=== PATIENT | male | born 1950 | race Caucasian/White ===

== ENCOUNTER → 2017-10-07 08:21 | Outpatient (CLI) | payer MEDICARE, OTHER, SELFPAY ==
[2017-10-07 09:29] LABS: PSA,Total- Diagnostic 0.03 ng/mL (0.0-4.0)
== END ==
PROVIDERS: Visit Provider Urology
DX: C61 Malignant neoplasm of prostate (principal)
CPT/HCPCS: 36415; 84153

== ENCOUNTER → 2018-04-07 08:31 | Outpatient (CLI) | payer MEDICARE, OTHER, SELFPAY ==
[2018-04-07 09:19] LABS: PSA,Total- Diagnostic 0.04 ng/mL (0.0-4.0)
== END ==
PROVIDERS: Referring Provider Urology; Visit Provider Urology
DX: C61 Malignant neoplasm of prostate (principal)
CPT/HCPCS: 36415; 84153

== ENCOUNTER → 2018-10-07 | Outpatient (CLI) | payer MEDICARE, OTHER, SELFPAY ==
[2017-02-17 13:32] VITALS: BMI 25.0
[2018-10-07 10:04] LABS: PSA,Total- Diagnostic 0.06 ng/mL (0.0-4.0)
== END | disposition home or self-care (01) ==
PROVIDERS: Referring Provider Urology; Visit Provider Urology
DX: R97.20 Elevated prostate specific antigen [PSA] (principal)
CPT/HCPCS: 36415; 84153

== ENCOUNTER 2019-02-08 12:21 | Observation (INO) | payer MEDICARE, OTHER, SELFPAY ==
[2019-02-08] VITALS (13 sets, daily range): BP systolic 123–156; BP diastolic 71–98; PULSE 55–76; RESP 11–18; TEMP 36.2–37; O2SAT 95–100; BMI 24.3; BMI 24.4; BMI 25.4
--- NOTE | 2019-02-08 12:39 | RAD_ITS ---
STUDY: X-RAY CHEST REASON FOR EXAM: Male, 68 years old. Cough. Weakness. TECHNIQUE: Single AP portable view of the chest. COMPARISON: None. FINDINGS: Cardiac silhouette unremarkable. Pulmonary vascularity unremarkable. Aorta slightly ectatic. No focal patchy airspace opacities. No pleural effusions. Upper abdomen unremarkable. Osseous structures intact. No pneumothorax. RAD/Chest 1 View IMPRESSION: No acute cardiopulmonary findings Electronically Signed: Yair Sagastume DO at 13:21 EDT Tel , Service support ,
--- NOTE | 2019-02-08 12:39 | EKG12_ITS ---
Test Reason : WEAKNESS/DIZZINESS Blood Pressure : / mmHG Vent. Rate : 071 BPM Atrial Rate : 071 BPM P-R Int : 160 ms QRS Dur : 086 ms QT Int : 390 ms P-R-T Axes : 027 -06 028 degrees QTc Int : 423 ms Normal sinus rhythm Normal ECG Confirmed by MEGHANA DELANEY ([id number]), editorial intern HETAL IGLESIAS ([id number]) on 02/13/2019 2:08:32 PM Referred By: Zayda Cruz Confirmed By:MEGHANA DELANEY
--- NOTE | 2019-02-08 12:39 | CT_ITS ---
STUDY: CT BRAIN WITHOUT CONTRAST REASON FOR EXAM: Male, 68 years old. Right-sided weakness RADIATION DOSAGE (If Supplied By Facility): CTDIvol = ( 44.99 ) mGy, DLP = ( 779.24 ) mGycm TECHNIQUE: Transaxial CT imaging of the brain was performed without administration of intravenous contrast material. Individualized dose optimization techniques were used for this CT. COMPARISON: No relevant priors. FINDINGS: Normal soft tissue structures. Normal calvarium. There is mild cerebral atrophy with widening of the extra-axial spaces and ventricular dilatation. There are areas of decreased attenuation within the white matter tracts of the supratentorial brain, consistent with microvascular disease changes. Normal basal ganglia and thalami. Normal brainstem. There is mild cerebellar atrophy. There is no intracranial hemorrhage. There are no findings of an acute ischemic infarction. Normal visualized paranasal sinuses. CT/Brain/Head without Contrast IMPRESSION: Chronic involutional changes of the brain. No acute intracranial process. Electronically Signed: David Calhoun MD at 13:16 EDT Tel [phone], Service support ,
[2019-02-08 12:48] LABS: Absolute Lymphocyte Count 1.37 X10^3/uL (0.83-4.51); Absolute Neutrophil Count 3.9 X10^3/uL (2.0-7.7); Basophil# 0.03 X10^3/uL; Basophil% 0.5 % (0-1); Eosinophils% 1.7 % (0-5); Hematocrit 45.6 % (40-54); Hemoglobin 15.4 g/dL (13.0-16.5); Lymphocyte # 1.37 X10^3/ul (4.0); Lymphocyte % 23.2 % (19-41); Mean Corp Hgb Conc 33.8 g/dL (32-36); Mean Corpuscular Hgb 30.5 pg (27.0-32.0); Mean Corpuscular Volume 90.3 fL (80-94); Mean Platelet Vol. 9.2 fl (6.2-12.0); Monocyte# 0.49 X10^3/uL; Monocyte% 8.3 % (0-10); NRBC Flagged by Analyzer 0 % (0-5); Platelet Count 246 K/mm3 (150-450); RBC Distribution Width CV 12.9 % (11.6-14.6); RBC Distribution Width SD 42.3 fl (35.1-43.9); Red Blood Count 5.05 M/mm3 (4.6-6.2); White Blood Count 5.9 K/mm3 (4.4-11.0)
[2019-02-08 12:55] LABS: Prothrombin Time (Protime)PT. 12.8 SECONDS (11.7-14.9)
[2019-02-08 12:56] LABS: Partial Thromboplast Time 28.7 Seconds (24.1-36.2)
[2019-02-08 13:05] LABS: Bedside Glucose 95 mg/dL (70-110)
[2019-02-08 13:05] LABS: Anion Gap 7 (5-15); BUN 17 mg/dL (7-18); BUN/Creat Ratio 12.8 RATIO (10-20); Chloride 108 mmol/L (98-107); Creatinine, Serum 1.33 mg/dL (0.70-1.30); EST Glomerular Filtration Rate 56 mL/min (>60); Est Glom Filt Rate - Afr Amer 68 mL/min (>60); Estimated Creatinine Clearance 51.68 ml/min; Glucose 93 mg/dL (74-106); Potassium 4.3 mmol/L (3.5-5.1); Sodium Level 141 mmol/L (136-145)
--- NOTE | 2019-02-08 14:15 | NURSING ---
DR CARTER FOR DR HILLIARD
--- NOTE | 2019-02-08 14:19 | ED.DCSUM_ITS ---
History of Present Illness Chief Complaint: Weakness Narrative: Patient presenting for evaluation secondary to right-sided weakness and numbness. Patient reports that 5 days ago he had a sudden onset of right arm and right leg numbness and weakness. He reports that this lasted approximately an hour and then spontaneously resolved. Patient reports that he has been feeling fine throughout the course of this week, but today about an hour and a half prior to arrival he had an onset of similar symptoms. He reports that it was associated with some gait instability as well as dizziness. Denies any visual changes or speech difficulty. Patient denies that he has any history of stroke hypertension hyperlipidemia or smoking. No cardiovascular history. Review of systems otherwise negative. Past Medical History - Allergies and Home Meds Allergies/Adverse Reactions: Allergies No Known Allergies Allergy (Verified 02/08/19 12:21) Primary Care Physician: Care Physician,No Primary [Primary Care Provider] - Past Medical History: None Smoking Status: Never smoker Review of Systems General: Denies: Chills, Fever, Sweats Eyes: Denies: Visual changes - bilaterally, Diplopia ENT: Denies: Rhinorrhea, Sore throat Cardiovascular: Denies: Chest pain, Palpitations Respiratory: Denies: Dyspnea, Cough, Dyspnea on exertion Gastrointestinal: Denies: Abdominal pain, Nausea, Vomiting, Diarrhea, Melena, Hematochezia Genitourinary: Denies: Dysuria, Hematuria, Frequency Musculoskeletal: Denies: Back pain, Extremity Pain Skin: Denies: Rash, Wounds Neurological: Reports: Weakness, Parasthesia. Denies: Headache, Numbness STROKE Vital Signs/Narrative: Vital Signs Temp Pulse Resp BP Pulse Ox 02/08/19 14:00 69 15 144/93 H 95 02/08/19 13:21 65 11 L 146/81 H 96 02/08/19 13:09 65 11 L 146/81 H 96 02/08/19 12:56 100 02/08/19 12:55 76 16 156/98 H 99 02/08/19 12:22 97.1 F L 76 17 156/98 H 97 Inital Vital Signs reviewed: Yes General: Well nourished, Well developed Head: Normocephalic, Atraumatic Eyes: Perrl, EOMI ENT: Moist mucous membranes, No rhinorrhea Neck: Supple, Nontender, - - No carotid bruits noted Cardiovascular: Regular rate, Regular rhythm, Murmur - 2 out of 6 systolic Respiratory: No distress, CTA bilaterally, Chest nontender Abdomen: Soft, Nontender, Nondistended, Normal bowel sounds Back: Nontender, Normal Inspection Extremities: Nontender, No edema Skin: Normal color, No rash Neurological: - - NIH stroke scale is 1 secondary to right sided numbness Diagnostic/Tx/Re-eval - EKG Initial EKG Interpretation: - - Sinus rhythm at [address] segments normal T wa ves no evidence of acute ischemia or arrhythmia - Medical Decision Making Stroke Team Activated: No Patient presented secondary to right sided numbness and weakness. Patient's NIH stroke scale was only found to be 1. Stroke team was not activated therefore, but stroke work-up was obtained. CBC chemistry troponin CT brain and EKG found to all be unremarkable. Patient was still having persistent symptoms on repeat evaluation. I believe he requires admission. I discussed this with the hospitalist and the patient will be admitted. ED Disposition - Plan for ED Patient: Disposition: Acute Care Hospital [facility] Diagnosis: Right sided weakness, Right sided numbness
--- NOTE | 2019-02-08 14:24 | PCM.HP.STD ---
Problem List (1) TIA (transient ischemic attack) Status: Acute (2) Right sided weakness Status: Acute (3) Prostate CA Status: Inactive History of Present Illness Date of Admission: 02/08/19 Chief Complaint: Right-sided weakness, dizziness, unsteady gait -started 5 days ago The patient is a 68 year old M with past medical history of prostate CA status post prostatectomy, follows with Dr. Crockett who comes in with complaints of right-sided weakness and tingling which started 5 days prior to admission. 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 He went to take a hot bath thinking that would help but it did not. This persisted for a while and went away. A day prior to admission, patient had gone outside to work and felt a little dizzy and unsteady, this lasted for a few minutes and went away. On the day of the admission, he had helped to dig a hole to put a post in. He got up and felt unsteady with recurrence of the right-sided weakness and numbness. This has been ongoing for more than 4 hours prior to the admission. He does not take any medications at home. He follows with Dr. Crockett every 6 months. Denies any nausea or vomiting or diaphoresis or chest pain. In the ED, his vitals were pressure 97.1F, heart rate 76, blood pressure 156/98, respiratory rate is 17, SPO2 is 97% on room air. His admitting blood work showed unremarkable CBC D, BMP was sodium 141, potassium 4.3, chloride 108, bicarbonate 26, BUN 17, creatinine 1.33, troponins were negative. CT scan of the head showed chronic involutional changes of the brain. No acute intracranial process. Chest x-ray showed no acute cardiopulmonary findings Past Medical History Medical History: Medical History (Last Updated 11/23/18 @ 10:17 by Selin Munoz) History of prostate cancer Z85.46 history of removal of prostate Allergies No Known Allergies Allergy (Verified 02/08/19 12:21) Home Medications: Ambulatory Orders Medication Instructions Recorded NK 02/08/19 Surgical History: - - Status post prostatectomy, vasectomy Psychiatric History: No pertinent psych hx Lives: Spouse/ Significant Other Smoking Status: Never smoker Tobacco Use: Non-smoker Alcohol: None Drugs: None - *Family History Paternal History Items: Cancer - Lung CA Maternal History Items: No pertinent history Review of Systems Constitutional: Denies: Anorexia, Chills, Fever, Malaise, Weakness, Weight Change, Fatigue Eyes: Denies: Blurred vision, Cataracts, Conjunctivae Inflammation, Pain, Redness HEENT: Denies: Difficulty Hearing, Difficulty Swallowing, Head Aches, Hearing Changes, Sinus Congestion, Sinus Drainage Cardiovascular: Denies: Chest Pain, Claudication, Orthopnea, Palpitations, Paroxysmal Noc. Dyspnea Respiratory: Denies: Cough, Shortness of Breath, Shortness of breath at rest, Shortness of breath upon exertion, Sputum production Gastrointestinal: Denies: Abdominal Pain, Constipation, Diarrhea, Hematemesis, Hematochezia, Nausea, Vomiting Genitourinary: Denies: Dysuria, Frequency, Hesitancy, Incontinence, Nocturia, Urgency Musculoskeletal: Reports: Neck Pain - stiffness. Denies: Joint Pain, Joint stiffness, Joint swelling, Joint Tenderness Skin: Denies: Pruritis, Rash, Wounds Neurological: Reports: Focal weakness, Numbness, Tingling Psychiatric: Denies: Anxiety, Depression, Homicidal Ideations, Suicidal Ideations Hematologic/ Lymphatic: Denies: Easy Bruising, Easy Bleeding VTE Information - Inpt Only VTE Present on Admission: No VTE Pharm Prophylaxis ordered?: Yes Patient Problems: Active and Suspected Problems (Last Updated 11/23/18 @ 10:17 by Selin Munoz) Right sided weakness (Acute) Right sided numbness (Acute) TIA (transient ischemic attack) (Acute) - Physical Exam General: Alert, Oriented x3, Cooperative, No apparent distress HEENT: Atraumatic, PERRLA, EOMI, Normocephalic Oral: Moist Mucosa Neck: Supple, - - mild tenderness over the right posterior neck with tenseness of his right trapezius muscle Lungs: Clear to auscultation, Normal air movement Cardiovascular: Regular rate, Regular Rhythm, Normal S1, Normal S2, No murmurs Abdomen: Bowel Sounds Present, Soft, Non Tender, Non-Distended, No Hepato-splenomegaly Extremities: No edema Skin: No rashes, No breakdown Musculoskeletal: No Tenderness to Palpation of Joints or Extremities Lymphatic: No Cervical, Supraclavicular, or Inguinal Adenopathy Neurological: Cranial nerves II-XII grossly intact, Neuro grossly intact, - - NIHSS score was 0 Psych/Mental Status: Normal Affect, Appropriate Vital Signs Temp Pulse Resp BP Pulse Ox 97.1 F L 69 15 144/93 H 95 02/08/19 12:22 02/08/19 14:00 02/08/19 14:00 02/08/19 14:00 02/08/19 14:00 Oxygen Delivery Method Room Air Weight: 74.843 kg Body Mass Index (BMI) 24.3 Finger Stick Blood Glucose 95 Laboratory Tests Past 24 Hrs 02/08/19 02/08/19 02/08/19 12:35 12:35 12:35 WBC 5.9 RBC 5.05 Hgb 15.4 Hct 45.6 MCV 90.3 MCH 30.5 MCHC 33.8 RDW Std Deviation 42.3 RDW Coeff of Emeli 12.9 Plt Count 246 MPV 9.2 Immature Gran % (Auto) 0.300 Neut % (Auto) 66.0 Lymph % (Auto) 23.2 [place] % (Auto) 8.3 Eos % (Auto) 1.7 Baso % (Auto) 0.5 Absolute Neuts (auto) 3.9 Absolute Lymphs (auto) 1.37 Nucleated RBC % 0 PT 12.8 INR 1.0 APTT 28.7 Sodium 141 Potassium 4.3 Chloride 108 H Carbon Dioxide 26.0 Anion Gap 7 BUN 17 Creatinine 1.33 H Estim Creat Clear Calc 51.68 Est GFR (MDRD) Af Amer 68 Est GFR (MDRD) Non-Af 56 L BUN/Creatinine Ratio 12.8 Glucose 93 Calcium 9.0 Troponin I < 0.015 POC Glucose 02/08/19 12:58 POC Glucose 95 Assessment/Plan All Active Problems (Last Updated 11/23/18 @ 10:17 by Selin Munoz) Right sided weakness (Acute) Right sided numbness (Acute) TIA (transient ischemic attack) (Acute) 68 year old M with past medical history of prostate CA status post prostatectomy, follows with Dr. Crockett who comes in with complaints of right-sided weakness and tingling which started 5 days prior to admission. 1. Acute right sided weakness and tingling likely secondary to TIA, ongoing over the past 5 days Patient is fairly healthy, no cardiovascular risk factors except for age Stable vitals, NIHSS 0, initial brain CT negative Plan: Admit to PCU, monitor on telemetry, stroke protocol, neurology consult, MRI of the brain, MRA of the head and neck, will also get MRI of the cervical spine to rule out nerve impingement 2D echo, lipid profile, HbA1c Aspirin 81 mg p.o. daily Atorvastatin 40 mg QHS 2. History of prostate cancer, status post prostatectomy, follows with Dr. Crockett on the outpatient 3. Dehydration with slight elevation in his creatinine, creatinine is 1.33, from 1.07, Will continue on IVF Repeat blood work in am 4. DVT PPx- Heparin SC Code Visit OBSV E&M: [id number] Initial observation care L3
--- NOTE | 2019-02-08 14:24 | NURSING ---
124 OBS TIA PAINTSIL
--- NOTE | 2019-02-08 14:56 | MRI_ITS ---
STUDY: MRA OF THE HEAD WITHOUT CONTRAST REASON FOR EXAM: Male, 68 years old. CVA and right-sided weakness and dizziness TECHNIQUE: 3-D [id number] (TOF) imaging was performed with MIPs. The study was performed unenhanced. COMPARISON: Brain MRI same day FINDINGS: Normal bilateral petrous carotid arteries. Normal right cavernous carotid artery with a normal supraclinoid bifurcation. Normal left cavernous carotid artery with a normal supraclinoid bifurcation. Normal right A1 segments of the anterior cerebral artery. Normal left A1 segments of the anterior cerebral artery. Normal intact anterior communicating artery (ACOM). Normal bilateral A2 segments of the anterior cerebral arteries. Normal right M1 and M2 segments of the middle cerebral arteries, with a normal M1 bifurcation. Normal left M1 and M2 segments of the middle cerebral arteries, with a normal M1 bifurcation. There is non-visualization of the right posterior communicating artery (PCOM). There is non-visualization of the left posterior communicating artery (PCOM). Normal bilateral vertebral arteries. Normal basilar artery with a normal basilar bifurcation. The visualized bilateral superior cerebellar (SCA) arteries are normal. Normal bilateral P1, P2 and visualized P3 segments of the posterior cerebral arteries. There is no demonstrated aneurysm of the [place]. There is no major vessel occlusion or hemodynamically significant stenosis. There is no demonstrated abnormality of the visualized brain. MRI/MRA Head ONLY without Contrast IMPRESSION: No MRA evidence of significant intracranial arterial pathology. Electronically Signed: Fortino Weiner MD at 18:46 EDT Tel , Service support ,
--- NOTE | 2019-02-08 14:56 | ECHOD_ITS ---
Reason For Study: TIA/CVA Procedure This was a 2D Doppler, Color Flow transthoracic echocardiogram. Exam performed portable in patient room. Left Ventricle Normal size and thickness. The estimated ejection fraction is 65 %. Stage 1 diastolic dysfunction. No regional wall motion abnormalities noted. Right Ventricle Normal size and thickness. Normal systolic function. Atria Normal left atrium. Normal right atrium. Normal atrial septum. Saline contrast study demonstrates trivial right to left interatrial shunt. Mitral Valve The mitral valve is structurally normal. No prolapse or stenosis seen. Mild (1+) mitral valve insufficiency. Tricuspid Valve Normal tricuspid valve. Trivial tricuspid valve insufficiency. Right ventricular systolic pressure estimated to be 27 mmHg. Aortic Valve Trisinus/trileaflet aortic valve. Mild focal aortic valve thickening. Mild (1+) aortic valve insufficiency. Pulmonic Valve Normal pulmonic valve. Great Vessels Normal aortic root. Normal arch. Normal inferior vena cava. Inferior vena cava collapse with sniff. Pericardium/Pleural No pericardial effusion. Medication Performed a rapid injection of agitated mix of 9 cc saline and 1cc air to assess for atrial septal defect. MMode/2D Measurements & Calculations LVIDd: 4.7 cm IVSd: 0.93 cm Ao root diam: 3.1 cm LVIDs: 3.0 cm LVPWd: 0.82 cm RVDd: 3.5 cm FS: 35.7 % LAV(MOD-bp): 48.1 ml LVAd ap4: 26.4 cm2 SV(MOD-sp4): 44.0 ml LAV(MOD-bp) Indexed: 25.2 ml/m2 EDV(MOD-sp4): 75.7 ml LAV(MOD-sp2): 68.4 ml EDV(sp4-el): 78.1 ml LAV(MOD-sp4): 34.3 ml LVAs ap4: 15.0 cm2 ESV(MOD-sp4): 31.7 ml ESV(sp4-el): 30.7 ml EF(MOD-sp4): 58.2 % EF(sp4-el): 60.7 % SV(sp4-el): 47.4 ml LA A4 area: 15.7 cm2 LA dimension(2D): 3.6 cm RA A4 area: 11.8 cm2 Doppler Measurements & Calculations MV E max alex: 49.1 cm/sec Lat Peak E' Alex: 8.3 cm/sec Med Peak E' Alex: 4.9 cm/sec MV A max alex: 74.7 cm/sec E/E' lat: 5.9 E/E' med: 10.0 MV E/A: 0.66 Ao V2 max: 122.3 cm/sec AI max alex: 381.8 cm/sec LV V1 max: 96.6 cm/sec Ao max P.0 mmHg AI max P.3 mmHg LV V1 max P.7 mmHg Ao V2 mean: 80.8 cm/sec Ao mean P.9 mmHg AI dec slope: 192.9 cm/sec2 Ao V2 VTI: 25.5 cm AI P1/2t: 579.8 msec PA V2 max: 126.1 cm/sec TR max alex: 232.5 cm/sec TR max P.6 mmHg Interpretation Summary The estimated ejection fraction is 65 %. Stage 1 diastolic dysfunction. Saline contrast study demonstrates trivial right to left interatrial shunt. Mild (1+) mitral valve insufficiency. Trivial tricuspid valve insufficiency. Right ventricular systolic pressure estimated to be 27 mmHg. Mild (1+) aortic valve insufficiency. There is no comparison study available. Ordering Physician: Zayda Cruz Referring Physician: Zayda Cruz Performed By: Nina Carrillo RDCS, RVT
--- NOTE | 2019-02-08 14:56 | MRI_ITS ---
STUDY: MRI BRAIN WITHOUT CONTRAST REASON FOR EXAM: Male, 68 years old. cva, rt sided weakness,dizzy TECHNIQUE: Standardized multiplanar fat and water weighted pulse sequences were obtained. COMPARISON: Head CT same day FINDINGS: Normal size of the ventricles and extra-axial spaces for the patient's age. Normal white matter tracts of the supratentorial brain. A focal acute infarct is present in the lateral posterior limb of the left internal capsule. Normal bilateral basal ganglia. Normal thalami. There is no extra-axial fluid accumulation. Normal flow voids within the major intracranial circulation suggesting patency by spin echo criteria. Normal sella turcica, pituitary gland, infundibular stalk, optic chiasm and hypothalamus. Normal tectal plate and pineal gland. Normal midbrain, zain and medulla. Normal cerebellum. Normal basal cisterns. Normal bilateral temporal bones. Normal bilateral internal auditory canals. No demonstrated orbital abnormality, within the constraints of a routine brain study. Normal visualized paranasal sinuses. Left mastoid sinus disease. Normal visualized soft tissue structures. Normal visualized upper cervical spine. 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 No evidence of acute intracranial hemorrhage. Electronically Signed: Fortino Weiner MD at 17:40 EDT Tel , Service support ,
[2019-02-08 15:43] LABS: AST(SGOT) 21 U/L (15-37); Alanine Aminotransfer ALT/SGPT 22 U/L (16-61); Albumin, Serum 3.7 g/dL (3.2-5.0); Alkaline Phosphatase 73 U/L (45-117); Bilirubin, Direct 0.17 mg/dL (0.00-0.30); Globulin 4.1 g/dL (2.2-4.2); Protein, Total 7.8 g/dL (6.4-8.2); Thyroid Stim Hormone (TSH) 2.02 uIU/mL (0.358-3.74)
[2019-02-08] MEDS: 0.9% Normal Saline 1,000 ML 100 ML IV (18:17)
[2019-02-08] MEDS: Aspirin 81 MG TAB.CHEW PO (18:27)
[2019-02-08] MEDS: Atorvastatin Calcium 40 MG Tablet PO (22:03)
[2019-02-08] MEDS: Heparin Injection (Vial) 5,000 UNIT/ML VIAL 5000 UNIT SC (22:03)
[2019-02-09 02:00] VITALS: BP 139/65; PULSE 54; RESP 16; TEMP 36.9; O2SAT 97
[2019-02-09 03:00] VITALS: PULSE 46
[2019-02-09 03:21] VITALS: BMI 25.4
[2019-02-09] MEDS: 0.9% Normal Saline 1,000 ML 100 ML IV (04:26)
[2019-02-09 06:00] VITALS: BP 127/71; PULSE 57; RESP 16; TEMP 37.2; O2SAT 98
[2019-02-09 06:04] LABS: Absolute Lymphocyte Count 1.31 X10^3/uL (0.83-4.51); Absolute Neutrophil Count 2.8 X10^3/uL (2.0-7.7); Basophil# 0.03 X10^3/uL; Basophil% 0.6 % (0-1); Eosinophil# 0.19 X10^3/uL; Eosinophils% 3.9 % (0-5); Hematocrit 44.1 % (40-54); Hemoglobin 14.5 g/dL (13.0-16.5); Lymphocyte # 1.31 X10^3/ul (4.0); Mean Corp Hgb Conc 32.9 g/dL (32-36); Mean Corpuscular Hgb 30.3 pg (27.0-32.0); Mean Corpuscular Volume 92.3 fL (80-94); Mean Platelet Vol. 9.5 fl (6.2-12.0); Monocyte# 0.48 X10^3/uL; Monocyte% 9.9 % (0-10); NRBC Flagged by Analyzer 0 % (0-5); Neutrophil # 2.83 X10^3/uL (2.7-7.7); Neutrophil % 58.2 % (47-70); Platelet Count 225 K/mm3 (150-450); RBC Distribution Width SD 44.2 fl (35.1-43.9); Red Blood Count 4.78 M/mm3 (4.6-6.2); White Blood Count 4.9 K/mm3 (4.4-11.0)
[2019-02-09] MEDS: Heparin Injection (Vial) 5,000 UNIT/ML VIAL 5000 UNIT SC (06:05)
[2019-02-09 06:26] LABS: Anion Gap 5 (5-15); BUN 17 mg/dL (7-18); BUN/Creat Ratio 14.9 RATIO (10-20); Calcium,Total 8.4 mg/dL (8.5-10.1); Chloride 110 mmol/L (98-107); Cholesterol 152 mg/dL (200); Creatinine, Serum 1.14 mg/dL (0.70-1.30); EST Glomerular Filtration Rate 67 mL/min (>60); Est Glom Filt Rate - Afr Amer 82 mL/min (>60); Glucose 93 mg/dL (74-106); High Density Lipoprotein 67 mg/dL; Potassium 4.8 mmol/L (3.5-5.1); Sodium Level 142 mmol/L (136-145); Triglycerides 105 mg/dL; Very Low Density Lipoprotein 21 mg/dL (5-40)
[2019-02-09 06:55] VITALS: PULSE 52
[2019-02-09] MEDS: Aspirin 81 MG TAB.CHEW PO (08:07)
[2019-02-09 09:08] VITALS: BMI 25.4
[2019-02-09 10:00] VITALS: BP 147/76; PULSE 63; RESP 16; TEMP 36.4; O2SAT 96
--- NOTE | 2019-02-09 11:11 | CASEMGMT ---
Pt scored 1 on PHQ-9, no further interventions indicated. BENNIE Cantrell
--- NOTE | 2019-02-09 11:58 | CON.PCM_ITS ---
Reason for Consult Date of Consultation: 02/09/19 Reason for Consultation: TIA History of Present Illness: The patient is a 68 year old M with PMH of Migraines and Hx of prostate cancer post prostatectomy about 2 years ago and did not take any prior medication, presented to [facility] on 02/08/2019 for c/o dizziness, right sided weakness, N/T. Symptoms started on 02/04/2019 when patient awakened and had dizziness, right sided numbness, blurred vision, chronic right neck pain and then took a bath, applied ice to neck and a nap, symptoms resolved. 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 Per patient, symptoms would come and go on this day and was brought to ER, symptoms were greater than 4 hours total on this day. Denies BASILIO, difficultly with speech or dysphagia,chest pain or tightness, palpitations, SOB, falls or LOC. Blood pressure was 156/98, pulse 76. Patient was started on asa and Lipitor. CT of brain showed no intracranial hemorrhage or acute infarct. 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 MRA of head showed no evidence of significant intracranial arterial pathology. MRA of neck showed normal bilateral cervical carotid and vertebral arteries. Echocardiogram showed EF 65%, Saline contrast study demonstrates trivial right to left interatrial shunt, Right ventricular systolic pressure 27 mmHg, stage I diastolic dysfunction, mild mitral and aortic valve insufficiency, and trivial tricuspid valve insufficiency. LDL 64, HgbA1c 6.0%. Symptoms have resolved. MRI of C-spine showed no abnormal cervical cord signa or enhancement, multilevel intervertebral disc disease with mild central canal narrowing at C 3-4, C5-6 and C6-7, and multilevel neural foraminal narrowing at C4-5, C5-6, C6-7, and cervical straightening with mild osteoarthritis. Patient stated he has a HX of chronic neck pain and sees a chiropractor. HX of migraines for the past 20-30 years, does not take medication, voiced his migraines consist of minimal blurred vision, lasts about 30 minutes, and occurs 1-2x/month without localized pain. Patient is positive with snoring, denies daytime tiredness, but when sits down in evening falls a sleep in chair. Awakens x1 at night for bathroom.Patient lives with spouse in a 2 story house with first floor setup and with one step to enter. 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 Past Medical History Medical History: Medical History (Last Updated 11/23/18 @ 10:17 by Selin Munoz) History of prostate cancer Z85.46 history of removal of prostate Allergies No Known Allergies Allergy (Verified 02/08/19 12:21) Home Medications: Ambulatory Orders Medication Instructions Recorded NK 02/08/19 Surgical History: - - Status post prostatectomy, vasectomy Psychiatric History: No pertinent psych hx Lives: Spouse/ Significant Other Smoking Status: Never smoker Tobacco Use: Non-smoker Alcohol: None Drugs: None - *Family History Paternal History Items: Cancer - Lung CA at age 78, Hypertension Maternal History Items: Hypertension, - - at age 101 Review of Systems Constitutional: Denies: Chills, Fever, Weight Change Eyes: Denies: Blurred vision, Double vision, Vision Change HEENT: Denies: Difficulty Hearing, Difficulty Swallowing, Head Aches, Sinus Congestion, Sinus Drainage, Visual Changes Cardiovascular: Denies: Chest Pain, Chest Pressure, Chest Tightness, Palpitations Respiratory: Denies: Cough, Shortness of Breath, Shortness of breath at rest, Sputum production Gastrointestinal: Denies: Abdominal Pain, Nausea, Vomiting Genitourinary: Denies: Dysuria, Frequency, Incontinence Musculoskeletal: Denies: Joint Pain, Joint Tenderness Skin: Denies: Rash, Wounds Neurological: Denies: Blurred vision, Double vision, Change in Speech, Slurred speech, Confusion, Difficulty swallowing, Focal weakness, Headaches, Numbness, Tingling Psychiatric: Denies: Anxiety, Depression, Homicidal Ideations, Suicidal Ideations Hematologic/ Lymphatic: Denies: Easy Bruising, Easy Bleeding Patient Problems: Active and Suspected Problems (Last Updated 11/23/18 @ 10:17 by Selin Munoz) Right sided weakness (Acute) Right sided numbness (Acute) TIA (transient ischemic attack) (Acute) Subjective: Per patient, symptoms have resolved. Denies BASILIO, vision changes, difficult with speech, dysphagia, dizziness or lightheadedness, weakness, chest pain or tightness, or SOB. - Physical Exam General: Alert, Oriented x3, Cooperative HEENT: Atraumatic, PERRLA Oral: Moist Mucosa Neck: Supple, No JVD Lungs: Clear to auscultation, Normal air movement Abdomen: Bowel Sounds Present, Soft, Non Tender Extremities: No clubbing, No cyanosis, No edema Neurological: Cranial nerves II-XII grossly intact, Deep Tendon Reflexes 2+/4 and Symmetrical, Motor Exam 5/5 strength throughout, - - NIHSS 0, good proprioception, tactile sensation intact to extremities. Psych/Mental Status: Normal Affect, Appropriate, Alert and oriented to time, place, person, mood and affect Vital Signs Temp Pulse Resp BP Pulse Ox 97.5 F L 63 16 147/76 H 96 02/09/19 10:00 02/09/19 10:00 02/09/19 10:00 02/09/19 10:00 02/09/19 10:00 Oxygen Delivery Method Room Air Weight: 67.3 kg Body Mass Index (BMI) 25.4 Finger Stick Blood Glucose 95 Intake and Output for Last 24 Hours 02/07/19 02/08/19 02/09/19 23:59 23:59 23:59 Intake Total 1308.33 / 1308.33 850.00 / 850.00 Balance 1308.33 / 1308.33 850.00 / 850.00 Laboratory Tests Past 24 Hrs 02/08/19 02/08/19 02/08/19 12:35 12:35 12:35 WBC 5.9 RBC 5.05 Hgb 15.4 Hct 45.6 MCV 90.3 MCH 30.5 MCHC 33.8 RDW Std Deviation 42.3 RDW Coeff of Emeli 12.9 Plt Count 246 MPV 9.2 Immature Gran % (Auto) 0.300 Neut % (Auto) 66.0 Lymph % (Auto) 23.2 [place] % (Auto) 8.3 Eos % (Auto) 1.7 Baso % (Auto) 0.5 Absolute Neuts (auto) 3.9 Absolute Lymphs (auto) 1.37 Nucleated RBC % 0 PT 12.8 INR 1.0 APTT 28.7 Sodium 141 Potassium 4.3 Chloride 108 H Carbon Dioxide 26.0 Anion Gap 7 BUN 17 Creatinine 1.33 H Estim Creat Clear Calc 51.68 Est GFR (MDRD) Af Amer 68 Est GFR (MDRD) Non-Af 56 L BUN/Creatinine Ratio 12.8 Glucose 93 Hemoglobin A1c Calcium 9.0 Total Bilirubin Direct Bilirubin AST ALT Alkaline Phosphatase Troponin I < 0.015 Total Protein Albumin Globulin Triglycerides Cholesterol LDL Cholesterol VLDL Cholesterol HDL Cholesterol TSH 02/08/19 02/08/19 02/08/19 12:35 12:35 18:00 WBC RBC Hgb Hct MCV MCH MCHC RDW Std Deviation RDW Coeff of Emeli Plt Count MPV Immature Gran % (Auto) Neut % (Auto) Lymph % (Auto) [place] % (Auto) Eos % (Auto) Baso % (Auto) Absolute Neuts (auto) Absolute Lymphs (auto) Nucleated RBC % PT INR APTT Sodium Potassium Chloride Carbon Dioxide Anion Gap BUN Creatinine Estim Creat Clear Calc Est GFR (MDRD) Af Amer Est GFR (MDRD) Non-Af BUN/Creatinine Ratio Glucose Hemoglobin A1c 6.0 Calcium Total Bilirubin 0.70 Direct Bilirubin 0.17 AST 21 ALT 22 Alkaline Phosphatase 73 Troponin I < 0.015 Total Protein 7.8 Albumin 3.7 Globulin 4.1 Triglycerides Cholesterol LDL Cholesterol VLDL Cholesterol HDL Cholesterol TSH 2.02 02/08/19 02/09/19 02/09/19 21:10 05:47 05:47 WBC 4.9 RBC 4.78 Hgb 14.5 Hct 44.1 MCV 92.3 MCH 30.3 MCHC 32.9 RDW Std Deviation 44.2 H RDW Coeff of Emeli 13.0 Plt Count 225 MPV 9.5 Immature Gran % (Auto) 0.400 Neut % (Auto) 58.2 Lymph % (Auto) 27.0 [place] % (Auto) 9.9 Eos % (Auto) 3.9 Baso % (Auto) 0.6 Absolute Neuts (auto) 2.8 Absolute Lymphs (auto) 1.31 Nucleated RBC % 0 PT INR APTT Sodium 142 Potassium 4.8 Chloride 110 H Carbon Dioxide 27.0 Anion Gap 5 BUN 17 Creatinine 1.14 Estim Creat Clear Calc 57.40 Est GFR (MDRD) Af Amer 82 Est GFR (MDRD) Non-Af 67 BUN/Creatinine Ratio 14.9 Glucose 93 Hemoglobin A1c Calcium 8.4 L Total Bilirubin Direct Bilirubin AST ALT Alkaline Phosphatase Troponin I < 0.015 Total Protein Albumin Globulin Triglycerides 105 Cholesterol 152 LDL Cholesterol 64 VLDL Cholesterol 21 HDL Cholesterol 67 TSH POC Glucose 02/08/19 12:58 POC Glucose 95 Assessment/Plan All Active Problems (Last Updated 11/23/18 @ 10:17 by Selin Munoz) Right sided weakness (Acute) Right sided numbness (Acute) TIA (transient ischemic attack) (Acute) The patient is a 68 year old M with PMH of Migraines and Hx of prostate cancer post prostatectomy about 2 years ago and did not take any prior medication, presented to [facility] on 02/08/2019 for c/o dizziness, right sided weakness, N/T. Symptoms started on 02/04/2019 when patient awakened and had dizziness, right sided numbness, blurred vision, chronic right neck pain and then took a bath, applied ice to neck and a nap, symptoms resolved. 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 Per patient, symptoms would come and go on this day and was brought to ER, symptoms were greater than 4 hours total on this day. Denies BASILIO, difficultly with speech or dysphagia,chest pain or tightness, palpitations, SOB, falls or LOC. Blood pressure was 156/98, pulse 76. Patient was started on asa and Lipitor. CT of brain showed no intracranial hemorrhage or acute infarct. 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 MRA of head showed no evidence of significant intracranial arterial pathology. MRA of neck showed normal bilateral cervical carotid and vertebral arteries. Echocardiogram showed EF 65%, Saline contrast study demonstrates trivial right to left interatrial shunt, Right ventricular systolic pressure 27 mmHg, stage I diastolic dysfunction, mild mitral and aortic valve insufficiency, and trivial tricuspid valve insufficiency. LDL 64, HgbA1c 6.0%. Symptoms have resolved. MRI of C-spine showed no abnormal cervical cord signa or enhancement, multilevel intervertebral disc disease with mild central canal narrowing at C 3-4, C5-6 and C6-7, and multilevel neural foraminal narrowing at C4-5, C5-6, C6-7, and cervical straightening with mild o steoarthritis. Patient stated he has a HX of chronic neck pain and sees a chiropractor. HX of migraines for the past 20-30 years, does not take medication, voiced his migraines consist of minimal blurred vision, lasts about 30 minutes, and occurs 1-2x/month without localized pain. Patient is positive with snoring, denies daytime tiredness, but when sits down in evening falls a sleep in chair. Awakens x1 at night for bathroom. Patient lives with spouse in a 2 story house with first floor setup and with one step to enter. 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 Discussed with Dr. Monet and reviewed plan and agreed with plan.
--- NOTE | 2019-02-09 12:03 | VDLE_ITS ---
Reason For Study: CVA w/ ASD RIGHT LEFT GSV is normal. GSV is normal. CFV is compressible, spontaneous, phasic, CFV is compressible, spontaneous, phasic, competent and demonstrates normal competent, and demonstrates normal augmentation. augmentation. FV is compressible, spontaneous, phasic, FV is compressible, spontaneous, phasic, competent and demonstrates normal competent and demonstrates normal augmentation. augmentation. POP V is compressible, spontaneous, phasic, POP V is compressible, spontaneous, phasic, competent and demonstrates normal competent and demonstrates normal augmentation. augmentation. T/P Trunk is compressible. T/P Trunk is compressible. PTV is compressible. PTV is compressible. RT PerV is compressible. LT PerV is compressible. Procedure Exam performed portable in patient room. A preliminary report was called and/or faxed to [facility]. Interpretation Summary No evidence for acute deep venous thrombosis bilateral lower extremities with patent and compressible bilateral great saphenous veins. Ordering Physician: Yair Haskins Performed By: Ilsa Barrow RVT
[2019-02-09 14:00] VITALS: BP 143/85; PULSE 61; RESP 16; TEMP 36.9; O2SAT 96
--- NOTE | 2019-02-09 14:40 | PCM.DC ---
- Discharge Diagnoses Current Active Problems: Current Active and Chronic Problems (Last Updated 11/23/18 @ 10:17 by Selin Munoz) Right sided weakness (Acute) Right sided numbness (Acute) TIA (transient ischemic attack) (Acute) You will use the following diet at home:: Cardiac Your food should be the consistency of: Regular Your liquids should be the consistency of: Regular/Thin Discharge Activity: Return to Normal Activity Allergies/Adverse Reactions: Allergies No Known Allergies Allergy (Verified 02/08/19 12:21) Medications to take at Discharge Aspirin [Aspirin, Baby] 81 mg PO DAILY@0800 tab.chew 02/09/19 Atorvastatin Calcium [Lipitor] 40 mg PO QHS #30 tab 02/09/19 The following prescriptions were given: Atorvastatin Calcium [Lipitor] 40 mg PO QHS #30 tab Transmission Status: Pending to [id number] Primary Care Physician: Care Physician,No Primary [Primary Care Provider] - Please follow up with your Primary Care Physician in: 1-2 weeks Test Results: Test results from this visit will be discussed in further detail at your follow-up appointment, if applicable. Please Follow Up With: Chiki Stern MD When: 3-4 weeks Proposed Discharge Date: 02/09/19
--- NOTE | 2019-02-09 14:42 | PCM.DC.SUM ---
<Manpreet Tirado - Last Filed: 02/09/19 14:42> Discharge Date and Diagnosis - Problem List Patient Problems: Active and Suspected Problems (Last Updated 11/23/18 @ 10:17 by Selin Munoz) Right sided weakness (Acute) Right sided numbness (Acute) TIA (transient ischemic attack) (Acute) Date of Admission: 02/08/19 Date of Discharge: 02/09/19 - Primary Discharge Diagnosis Active and Suspected Problems (Last Updated 11/23/18 @ 10:17 by Selin Munoz) Acute ischemic infarct left posterior limb, left internal capsule Small right to left intraatrial shunt on echo DDD and osteoarthritis cervical spine Hx prostate CA Hospital Course and Treatment Imaging Results: IMAGING: MRI/Spine Cervical W/WO Contrast IMPRESSION: No abnormal cervical cord signal or enhancement Multilevel intervertebral disc disease with mild central canal narrowing at C3-4, C5-6 and C6-7 Multilevel neural foraminal narrowing predominating at C4-5, C5-6 and C6-7 Cervical straightening with mild osteoarthritis CT/Brain/Head without Contrast IMPRESSION: Chronic involutional changes of the brain. No acute intracranial process. RAD/Chest 1 View IMPRESSION: No acute cardiopulmonary findings MRI/Brain without Contrast IMPRESSION: A focal acute infarct is present in the lateral posterior limb of the left internal capsule. No evidence of acute intracranial hemorrhage. Echo: Interpretation Summary The estimated ejection fraction is 65 %. Stage 1 diastolic dysfunction. Saline contrast study demonstrates trivial right to left interatrial shunt. Mild (1+) mitral valve insufficiency. Trivial tricuspid valve insufficiency. Right ventricular systolic pressure estimated to be 27 mmHg. Mild (1+) aortic valve insufficiency. There is no comparison study available. MRI/MRA Head ONLY without Contrast IMPRESSION: No MRA evidence of significant intracranial arterial pathology. MRI/MRA Neck WITH and W/O Contrast IMPRESSION: Normal bilateral cervical carotid and vertebral arteries. Consults: Leena - neuro. Operations: None Procedures: 2-D Echocardiogram Summary of Care Provided: Hospital Course: The patient is a 68 year old M with past medical history of prostate cancer who presented to the emergency room with complaints of intermittent right-sided weakness, upper and lower extremities, dizziness, unsteady gait over the last 5 days. He had no history of stroke or TIA. He was not on any medications at home. In the emergency room vitals were unremarkable, lab work unremarkable, CT of the brain unremarkable. He was admitted to the PCU and placed on telemetry for stroke work-up. MRI of the brain did reveal a acute infarct of the lateral posterior limb of the left internal capsule. MRA of the head and neck was unremarkable. Echocardiogram did demonstrate a trivial right to left shunt. MRI of the C-spine demonstrated degenerative disc disease and osteoarthritis. Venous duplex of the LE is pending at this time. TSH was normal, A1C was 6.0, troponin was negative x 3. Patient had no further symptoms after presentation. He was started on baby aspirin and Lipitor. Neurology recommended no further intervention or work-up. He was discharged home in stable condition and will need to follow-up with his PCP in 1 to 2 weeks as well as with neurology in 3 to 4 weeks. This patient was seen by Manpreet Tirado PA-C under the supervision of Doctor Jozef. Patient Problems: Active and Suspected Problems (Last Updated 11/23/18 @ 10:17 by Selin Munoz) Right sided weakness (Acute) Right sided numbness (Acute) TIA (transient ischemic attack) (Acute) - Physical Exam General: Alert, Oriented x3, Cooperative HEENT: Atraumatic, PERRLA, EOMI, Normocephalic Neck: Supple, No JVD, Negative Carotid Bruits Lungs: Clear to auscultation, Normal air movement Cardiovascular: Regular rate, No murmurs Abdomen: Bowel Sounds Present, Soft, Non Tender Extremities: No edema, Capillary Refill Less than 3 Seconds Skin: No rashes, No breakdown Musculoskeletal: No Tenderness to Palpation of Joints or Extremities Neurological: Cranial nerves II-XII grossly intact Psych/Mental Status: Normal Affect, Appropriate, Alert and oriented to time, place, person, mood and affect Vital Signs Temp Pulse Resp BP Pulse Ox 97.5 F L 63 16 147/76 H 96 02/09/19 10:00 02/09/19 10:00 02/09/19 10:00 02/09/19 10:00 02/09/19 10:00 Oxygen Delivery Method Room Air Weight: 148 lb 5.938 oz Body Mass Index (BMI) 25.4 Finger Stick Blood Glucose 95 Intake and Output for Last 24 Hours 08/20/19 08/21/19 08/22/19 23:59 23:59 23:59 Intake Total 1308.33 / 1308.33 970.00 / 970.00 Balance 1308.33 / 1308.33 970.00 / 970.00 Laboratory Tests Past 24 Hrs 02/08/19 02/08/19 02/08/19 12:35 12:35 18:00 WBC RBC Hgb Hct MCV MCH MCHC RDW Std Deviation RDW Coeff of Emeli Plt Count MPV Immature Gran % (Auto) Neut % (Auto) Lymph % (Auto) [place] % (Auto) Eos % (Auto) Baso % (Auto) Absolute Neuts (auto) Absolute Lymphs (auto) Nucleated RBC % Sodium Potassium Chloride Carbon Dioxide Anion Gap BUN Creatinine Estim Creat Clear Calc Est GFR (MDRD) Af Amer Est GFR (MDRD) Non-Af BUN/Creatinine Ratio Glucose Hemoglobin A1c 6.0 Calcium Total Bilirubin 0.70 Direct Bilirubin 0.17 AST 21 ALT 22 Alkaline Phosphatase 73 Troponin I < 0.015 Total Protein 7.8 Albumin 3.7 Globulin 4.1 Triglycerides Cholesterol LDL Cholesterol VLDL Cholesterol HDL Cholesterol TSH 2.02 02/08/19 02/09/19 02/09/19 21:10 05:47 05:47 WBC 4.9 RBC 4.78 Hgb 14.5 Hct 44.1 MCV 92.3 MCH 30.3 MCHC 32.9 RDW Std Deviation 44.2 H RDW Coeff of Emeli 13.0 Plt Count 225 MPV 9.5 Immature Gran % (Auto) 0.400 Neut % (Auto) 58.2 Lymph % (Auto) 27.0 [place] % (Auto) 9.9 Eos % (Auto) 3.9 Baso % (Auto) 0.6 Absolute Neuts (auto) 2.8 Absolute Lymphs (auto) 1.31 Nucleated RBC % 0 Sodium 142 Potassium 4.8 Chloride 110 H Carbon Dioxide 27.0 Anion Gap 5 BUN 17 Creatinine 1.14 Estim Creat Clear Calc 57.40 Est GFR (MDRD) Af Amer 82 Est GFR (MDRD) Non-Af 67 BUN/Creatinine Ratio 14.9 Glucose 93 Hemoglobin A1c Calcium 8.4 L Total Bilirubin Direct Bilirubin AST ALT Alkaline Phosphatase Troponin I < 0.015 Total Protein Albumin Globulin Triglycerides 105 Cholesterol 152 LDL Cholesterol 64 VLDL Cholesterol 21 HDL Cholesterol 67 TSH Discharge Diet: Low fat/ Low Cholesterol, 2000 mg Sodium Diet Discharge Activity: Return to Normal Activity Home Medications: Medications to take at Discharge Aspirin [Aspirin, Baby] 81 mg PO DAILY@0800 tab.chew 02/09/19 Atorvastatin Calcium [Lipitor] 40 mg PO QHS #30 tab 02/09/19 Following Prescrptions Were Given to Patient: Atorvastatin Calcium [Lipitor] 40 mg PO QHS #30 tab Transmission Status: Received by [id number] Primary Care Physician: Care Physician,No Primary [Primary Care Provider] - Please follow up with your Primary Care Physician in: 1-2 weeks Please Follow Up With: Chiki Stern MD When: 3-4 weeks Medical Necessity - Tobacco Use Smoking Status: Never smoker Tobacco Use: Non-smoker Meaningful Use Info Meaningful Use Diagnoses (Choose all that apply): Ischemic CVA - CVA Therapy Assessed for PT,OT and/or ST?: Yes - Ischemic Stroke Antithrombotic order at d/c?: Yes Dx of Atrial fib/flutter?: No Anticoagulant at discharge?: No Reason anticoagulant not ordered: Procedure not Indicated Statins at discharge?: Yes Primary Dx Acute Ischemic CVA?: Yes IV tPA ordered during stay?: No Reason IV t-PA not ordered: Procedure not Indicated <Yair Haskins - Last Filed: 02/09/19 15:10> Discharge Date and Diagnosis - Primary Discharge Diagnosis Active and Suspected Problems (Last Updated 11/23/18 @ 10:17 by Selin Muonz) Right sided weakness (Acute) Right sided numbness (Acute) TIA (transient ischemic attack) (Acute) Hospital Course and Treatment Imaging Results: 02/09/19 14:56 MRA Neck WITH and W/O Contrast [MRI] Routine Spine Cervical W/WO Contrast [MRI] Routine Operations: None Procedures: 2-D Echocardiogram Summary of Care Provided: Patient seen and examined independently. Data reviewed. I agree with the above note by the physician curriculum assistant principal. The patient is a 68 year old M's with intermittent right-sided weakness in the upper and lower extremities. Patient presented to the emergency room and was found to have a acute stroke of the left internal capsule. Echocardiogram showed a trivial right to left shunt in the atrium. Neurology was notified and recommend no additional work-up other than aspirin, statin. Patient currently is asymptomatic and strength is well intact. [] - Physical Exam General: Alert, Cooperative HEENT: Atraumatic, PERRLA, EOMI, Normocephalic Neck: No Nodes, Thyroid Normal Size and Texture Lungs: Clear to auscultation, Normal air movement, No rhonchi, No wheeze, No rales Cardiovascular: Regular rate, Regular Rhythm, Normal S1, Normal S2, No murmurs Abdomen: Bowel Sounds Present, Soft, Non Tender, Non-Distended Extremities: No edema, No Calf Tenderness Skin: No rashes, No breakdown Neurological: Cranial nerves II-XII grossly intact, Motor Exam 5/5 strength throughout Psych/Mental Status: Normal Affect, Appropriate Vital Signs Temp Pulse Resp BP Pulse Ox 36.9 C 61 16 143/85 H 96 02/09/19 14:00 02/09/19 14:00 02/09/19 14:00 02/09/19 14:00 02/09/19 14:00 Oxygen Delivery Method Room Air Weight: 67.3 kg Body Mass Index (BMI) 25.4 Finger Stick Blood Glucose 95 Intake and Output for Last 24 Hours 02/07/19 02/08/19 02/09/19 23:59 23:59 23:59 Intake Total 1308.33 / 1308.33 970.00 / 970.00 Balance 1308.33 / 1308.33 970.00 / 970.00 Laboratory Tests Past 24 Hrs 02/08/19 02/08/19 02/08/19 12:35 12:35 18:00 WBC RBC Hgb Hct MCV MCH MCHC RDW Std Deviation RDW Coeff of Emeli Plt Count MPV Immature Gran % (Auto) Neut % (Auto) Lymph % (Auto) [place] % (Auto) Eos % (Auto) Baso % (Auto) Absolute Neuts (auto) Absolute Lymphs (auto) Nucleated RBC % Sodium Potassium Chloride Carbon Dioxide Anion Gap BUN Creatinine Estim Creat Clear Calc Est GFR (MDRD) Af Amer Est GFR (MDRD) Non-Af BUN/Creatinine Ratio Glucose Hemoglobin A1c 6.0 Calcium Total Bilirubin 0.70 Direct Bilirubin 0.17 AST 21 ALT 22 Alkaline Phosphatase 73 Troponin I < 0.015 Total Protein 7.8 Albumin 3.7 Globulin 4.1 Triglycerides Cholesterol LDL Cholesterol VLDL Cholesterol HDL Cholesterol TSH 2.02 02/08/19 02/09/19 02/09/19 21:10 05:47 05:47 WBC 4.9 RBC 4.78 Hgb 14.5 Hct 44.1 MCV 92.3 MCH 30.3 MCHC 32.9 RDW Std Deviation 44.2 H RDW Coeff of Emeli 13.0 Plt Count 225 MPV 9.5 Immature Gran % (Auto) 0.400 Neut % (Auto) 58.2 Lymph % (Auto) 27.0 [place] % (Auto) 9.9 Eos % (Auto) 3.9 Baso % (Auto) 0.6 Absolute Neuts (auto) 2.8 Absolute Lymphs (auto) 1.31 Nucleated RBC % 0 Sodium 142 Potassium 4.8 Chloride 110 H Carbon Dioxide 27.0 Anion Gap 5 BUN 17 Creatinine 1.14 Estim Creat Clear Calc 57.40 Est GFR (MDRD) Af Amer 82 Est GFR (MDRD) Non-Af 67 BUN/Creatinine Ratio 14.9 Glucose 93 Hemoglobin A1c Calcium 8.4 L Total Bilirubin Direct Bilirubin AST ALT Alkaline Phosphatase Troponin I < 0.015 Total Protein Albumin Globulin Triglycerides 105 Cholesterol 152 LDL Cholesterol 64 VLDL Cholesterol 21 HDL Cholesterol 67 TSH Discharge Diet: Low fat/ Low Cholesterol, 2000 mg Sodium Diet Discharge Activity: Return to Normal Activity Disposition: Home Minutes spent on discharge:: 32 Patient Condition:: Good Medical Necessity - Tobacco Use Smoking Status: Never smoker Tobacco Use: Non-smoker Meaningful Use Info Meaningful Use Diagnoses (Choose all that apply): Ischemic CVA - CVA Therapy Assessed for PT,OT and/or ST?: Yes - Ischemic Stroke Antithrombotic order at d/c?: Yes Dx of Atrial fib/flutter?: No Anticoagulant at discharge?: No Reason anticoagulant not ordered: Procedure not Indicated Statins at discharge?: Yes Primary Dx Acute Ischemic CVA?: Yes IV tPA ordered during stay?: No Reason IV t-PA not ordered: Procedure not Indicated Code Visit OBSV E&M: [id number] Observation care discharge
--- NOTE | 2019-02-09 14:56 | MRI_ITS ---
STUDY: MRA NECK WITH AND WITHOUT CONTRAST REASON FOR EXAM: Male, 68 years old. CVA with trauma and right-sided weakness TECHNIQUE: 3-D [id number]-wyzdct (TOF) imaging was performed in an 1.5 T MRI scanner. 15 IV Dotarem was administered for the contrast enhanced images. COMPARISON: CT neck 03/31/2016. FINDINGS: RIGHT CAROTID ARTERIES: Normal right common carotid artery (CCA). Normal right common carotid bulb. Normal origin of the right internal carotid (ICA) artery without a hemodynamically significant stenosis. Normal visualized cervical portion of the right internal carotid artery. Normal origin of the right external carotid artery (ECA). LEFT CAROTID ARTERIES: Normal left common carotid artery (CCA). Normal left common carotid bulb. Normal origin of the left internal carotid (ICA) artery without a hemodynamically significant stenosis. Normal visualized cervical portion of the left internal carotid artery. Normal origin of the left external carotid artery (ECA). VERTEBRAL ARTERIES: Normal antegrade flow within the bilateral vertebral artery without a hemodynamically significant stenosis. MRI/MRA Neck WITH and W/O Contrast IMPRESSION: Normal bilateral cervical carotid and vertebral arteries. Electronically Signed: Kisha Koch, at 10:32 EDT Tel , Service support ,
--- NOTE | 2019-02-09 14:56 | MRI_ITS ---
STUDY: MRI CERVICAL SPINE WITH AND WITHOUT CONTRAST REASON FOR EXAM: Male, 68 years old. Stroke. Dizziness. Right neck pain. Prostate cancer. TECHNIQUE: Standardized fat and water weighted pulse sequences were obtained in the sagittal and axial following administration of 15 IV Dotarem. COMPARISON: None. FINDINGS: Please see dedicated brain MRI and neck MRA reports. Normal foramen magnum. Normal craniovertebral junction. Normal anterior atlantoaxial articulation. Normal odontoid process. Cervical straightening. No acute fracture line. No dislocation. No cortical destruction. No spondylolisthesis. T2 hemangioma. C2-3: Normal endplates. Normal disc height, signal and morphology. Normal central canal and intervertebral neural foramina. Mild facet joint arthrosis. C3-4: Normal endplates. Disc bulge, slightly prominent centrally, with minimal central canal narrowing. Mild neural foraminal narrowing. Mild facet joint arthrosis. C4-5: Normal endplates. Shallow disc bulge, asymmetric to the right, without central canal narrowing. Mild left and moderate right neural femoral narrowing. Mild facet joint arthrosis. C5-6: Minimal endplate spondylosis. Shallow disc bulge with minimal central canal narrowing. Severe left and moderate right neural foramina narrowing. Mild facet joint arthrosis. C6-7: Minimal endplate spondylosis. Disc bulge, asymmetric to the left, with mild central canal narrowing. Moderate left and mild to moderate right neural femoral narrowing. Mild facet joint arthrosis. C7-T1: Normal endplates. Normal disc height, signal and morphology. Normal central canal and intervertebral neural foramina. Normal cord signal. No abnormal contrast enhancement. Normal soft tissue structures. MRI/Spine Cervical W/WO Contrast IMPRESSION: No abnormal cervical cord signal or enhancement Multilevel intervertebral disc disease with mild central canal narrowing at C3-4, C5-6 and C6-7 Multilevel neural foraminal narrowing predominating at C4-5, C5-6 and C6-7 Cervical straightening with mild osteoarthritis Electronically Signed: Yair Sagastume DO at 10:14 EDT Tel , Service support ,
== END 2019-02-09 15:25 | disposition home or self-care (01) ==
LOC: ED 14:24 → PCU 14:33
PROVIDERS: Admitting Provider Internal Medicine; Emergency Provider Emergency Medicine; Referring Provider Internal Medicine
DX: G45.8 Other transient cerebral ischemic attacks and related syndromes (principal); E86.0 Dehydration; M50.30 Other cervical disc degeneration, unspecified cervical region; Z85.46 Personal history of malignant neoplasm of prostate; R60.1 Generalized edema; Z79.899 Other long term (current) drug therapy
CPT/HCPCS: 36415; 70450; 70544; 70549; 70551; 71045; 72156; 80048; 80061; 80076; 82962; 83036; 84443; 84484; 85025; 85610; 85730; 92523; 93005; 93306; 93970; 96360; 96361; 97162; 97166; 97802; 99218; 99285; A9575; J7030; A4216; G0378

== ENCOUNTER → 2019-03-10 | Outpatient (CLI) | payer MEDICARE, OTHER, SELFPAY ==
[2019-02-09 09:08] VITALS: BMI 25.4
[2019-02-21 09:55] VITALS: BMI 25.4
== END | disposition home or self-care (01) ==
PROVIDERS: PCP Internal Medicine; Referring Provider Nurse Practitioner Family; Visit Provider Nurse Practitioner Family
DX: G47.33 Obstructive sleep apnea (adult) (pediatric) (principal)
CPT/HCPCS: 95810

== ENCOUNTER → 2019-03-11 | Outpatient (CLI) | payer MEDICARE, OTHER, SELFPAY ==
[2019-02-21 09:55] VITALS: BMI 25.4
[2019-03-11 11:11] LABS: ALB/GLOB Ratio 0.9 RATIO (0.9-2.4); AST(SGOT) 23 U/L (15-37); Alanine Aminotransfer ALT/SGPT 27 U/L (16-61); Albumin, Serum 3.5 g/dL (3.2-5.0); Alkaline Phosphatase 87 U/L (45-117); Anion Gap 8 (5-15); BUN 24 mg/dL (7-18); BUN/Creat Ratio 21.4 RATIO (10-20); CPK Total, Creatine Kinase 144 U/L (39-308); Calcium,Total 8.8 mg/dL (8.5-10.1); Chloride 107 mmol/L (98-107); Creatinine, Serum 1.12 mg/dL (0.70-1.30); EST Glomerular Filtration Rate 69 mL/min (>60); Est Glom Filt Rate - Afr Amer 83 mL/min (>60); Globulin 3.8 g/dL (2.2-4.2); Glucose 69 mg/dL (74-106); Magnesium 2.2 mg/dL (1.6-2.6); Potassium 4.1 mmol/L (3.5-5.1); Protein, Total 7.3 g/dL (6.4-8.2); Sodium Level 142 mmol/L (136-145)
== END | disposition home or self-care (01) ==
LOC: LAB 09:58
PROVIDERS: Family Provider Internal Medicine; PCP Internal Medicine; Referring Provider Nurse Practitioner Family; Visit Provider Nurse Practitioner Family
DX: R25.2 Cramp and spasm (principal)
CPT/HCPCS: 36415; 80053; 82550; 83735; 84443

== ENCOUNTER → 2019-04-11 | Outpatient (CLI) | payer MEDICARE, OTHER, SELFPAY ==
[2019-04-04 09:02] VITALS: BMI 25.4
[2019-04-11 12:07] LABS: PSA,Total- Diagnostic 0.08 ng/mL (0.0-4.0)
== END | disposition home or self-care (01) ==
LOC: LAB 10:56
PROVIDERS: Family Provider Internal Medicine; PCP Internal Medicine; Referring Provider Urology; Visit Provider Urology
DX: C61 Malignant neoplasm of prostate (principal)
CPT/HCPCS: 36415; 84153

== ENCOUNTER → 2019-12-27 | Outpatient (CLI) | payer MEDICARE, OTHER, SELFPAY ==
[2019-10-03 10:11] VITALS: BMI 25.4
[2019-12-27 11:22] LABS: PSA,Total- Diagnostic 0.15 ng/mL (0.0-4.0)
== END | disposition home or self-care (01) ==
LOC: LAB 10:08
PROVIDERS: PCP Internal Medicine; Referring Provider Urology; Visit Provider Urology
DX: C61 Malignant neoplasm of prostate (principal)
CPT/HCPCS: 36415; 84153

== ENCOUNTER → 2020-01-25 09:51 | Outpatient (CLI) | payer MEDICARE, OTHER, SELFPAY ==
[2020-01-25 09:29] VITALS: BMI 25.4
[2020-01-25 12:36] LABS: Absolute Lymphocyte Count 1.22 X10^3/uL (0.83-4.51); Absolute Neutrophil Count 4.1 X10^3/uL (2.0-7.7); Basophil# 0.04 X10^3/uL; Basophil% 0.7 % (0-1); Eosinophil# 0.13 X10^3/uL; Eosinophils% 2.2 % (0-5); Hematocrit 45.6 % (40-54); Hemoglobin 15.2 g/dL (13.0-16.5); Lymphocyte # 1.22 X10^3/ul (4.0); Lymphocyte % 20.5 % (19-41); Mean Corp Hgb Conc 33.3 g/dL (32-36); Mean Corpuscular Hgb 30.3 pg (27.0-32.0); Mean Platelet Vol. 9.7 fl (6.2-12.0); Monocyte# 0.46 X10^3/uL; Monocyte% 7.7 % (0-10); NRBC Flagged by Analyzer 0 % (0-5); Neutrophil # 4.09 X10^3/uL (2.7-7.7); Neutrophil % 68.7 % (47-70); Platelet Count 270 K/mm3 (150-450); RBC Distribution Width CV 12.7 % (11.6-14.6); Red Blood Count 5.01 M/mm3 (4.6-6.2)
[2020-01-25 12:58] LABS: Hemoglobin A1c 5.8 % (3.8-5.6)
[2020-01-25 13:09] LABS: AST(SGOT) 20 U/L (15-37); Alanine Aminotransfer ALT/SGPT 32 U/L (16-61); Albumin, Serum 3.9 g/dL (3.2-5.0); Alkaline Phosphatase 86 U/L (45-117); Anion Gap 8 (5-15); BUN 19 mg/dL (7-18); BUN/Creat Ratio 16.8 RATIO (10-20); Calcium,Total 8.8 mg/dL (8.5-10.1); Chloride 105 mmol/L (98-107); Cholesterol 135 mg/dL (200); Creatinine, Serum 1.13 mg/dL (0.70-1.30); EST Glomerular Filtration Rate 68 mL/min (>60); Est Glom Filt Rate - Afr Amer 82 mL/min (>60); Globulin 4.1 g/dL (2.2-4.2); Glucose 97 mg/dL (74-106); High Density Lipoprotein 76 mg/dL; Potassium 3.8 mmol/L (3.5-5.1); Sodium Level 138 mmol/L (136-145); Thyroid Stim Hormone (TSH) 2.35 uIU/mL (0.358-3.74); Triglycerides 80 mg/dL; Very Low Density Lipoprotein 16 mg/dL (5-40)
== END ==
PROVIDERS: PCP Internal Medicine; Referring Provider Nurse Practitioner Family; Visit Provider Nurse Practitioner Family
DX: I10 Essential (primary) hypertension (principal); R51 Headache; R73.03 Prediabetes
CPT/HCPCS: 36415; 80053; 80061; 83036; 84443; 85025

== ENCOUNTER → 2020-04-02 | Outpatient (CLI) | payer MEDICARE, OTHER, SELFPAY ==
[2020-04-02 09:03] VITALS: BMI 25.9
[2020-04-02 12:40] LABS: Vitamin B12 497 pg/mL (211-911)
[2020-04-03 16:08] LABS: Free Lambda Light Chains 21.3 mg/L (5.7-26.3)
== END | disposition home or self-care (01) ==
LOC: LAB 09:57
PROVIDERS: PCP Internal Medicine; Referring Provider Psychiatry & Neurology Neurology; Visit Provider Psychiatry & Neurology Neurology
DX: G57.90 Unspecified mononeuropathy of unspecified lower limb (principal)
CPT/HCPCS: 36415; 82607; 82746; 83883

== ENCOUNTER → 2020-04-12 | Outpatient (CLI) | payer MEDICARE, OTHER, SELFPAY ==
[2020-04-02 09:03] VITALS: BMI 25.9
[2020-04-16 14:09] LABS: Albumin 3.9 g/dL (2.9-4.4); Alpha-1-Globulins 0.2 g/dL (0.0-0.4); Alpha-2-Globulins 0.8 g/dL (0.4-1.0); Gamma Globulin 1.1 g/dL (0.4-1.8); Immunoglobulin A 522 mg/dL (61-437); Immunoglobulin G 1148 mg/dL (603-1613); Immunoglobulin M 78 mg/dL (15-143); PROEL- TOTAL PROTEIN 7.1 g/dL (6.0-8.5)
== END | disposition home or self-care (01) ==
LOC: LAB 09:11
PROVIDERS: PCP Internal Medicine; Referring Provider Nurse Practitioner Family; Visit Provider Nurse Practitioner Family
DX: G62.9 Polyneuropathy, unspecified (principal)
CPT/HCPCS: 36415; 82784; 84165; 86334; 86335

== ENCOUNTER → 2020-07-22 09:27 | Outpatient (CLI) | payer MEDICARE, OTHER, SELFPAY ==
[2020-04-02 09:03] VITALS: BMI 25.9
== END ==
PROVIDERS: PCP Internal Medicine; Referring Provider Urology; Visit Provider Urology
DX: C61 Malignant neoplasm of prostate (principal)
CPT/HCPCS: 36415; 84153

== ENCOUNTER → 2021-03-21 08:14 | Outpatient (CLI) | payer MEDICARE, OTHER, SELFPAY ==
[2021-03-21 08:52] LABS: Hematocrit 44.5 % (40-54); Hemoglobin 14.8 g/dL (13.0-16.5); Mean Corp Hgb Conc 33.3 g/dL (32-36); Mean Corpuscular Hgb 30.6 pg (27.0-32.0); Mean Corpuscular Volume 91.9 fL (80-94); Mean Platelet Vol. 9.4 fl (6.2-12.0); Platelet Count 267 K/mm3 (150-450); RBC Distribution Width CV 13.2 % (11.6-14.6); RBC Distribution Width SD 45.1 fl (35.1-43.9); Red Blood Count 4.84 M/mm3 (4.6-6.2); White Blood Count 5.2 K/mm3 (4.4-11.0)
[2021-03-21 10:00] LABS: ALB/GLOB Ratio 0.8 RATIO (0.9-2.4); AST(SGOT) 20 U/L (15-37); Alanine Aminotransfer ALT/SGPT 19 U/L (16-61); Albumin, Serum 3.5 g/dL (3.2-5.0); Alkaline Phosphatase 74 U/L (45-117); Anion Gap 7 (5-15); BUN 21 mg/dL (7-18); BUN/Creat Ratio 17.6 RATIO (10-20); Calcium,Total 8.8 mg/dL (8.5-10.1); Chloride 106 mmol/L (98-107); Cholesterol 169 mg/dL (200); Creatinine, Serum 1.19 mg/dL (0.70-1.30); EST Glomerular Filtration Rate 64 mL/min (>60); Est Glom Filt Rate - Afr Amer 77 mL/min (>60); Globulin 4.4 g/dL (2.2-4.2); Glucose 110 mg/dL (74-106); High Density Lipoprotein 75 mg/dL; Potassium 4.4 mmol/L (3.5-5.1); Protein, Total 7.9 g/dL (6.4-8.2); Sodium Level 139 mmol/L (136-145); Thyroid Stim Hormone (TSH) 2.39 uIU/mL (0.358-3.74); Triglycerides 93 mg/dL; Very Low Density Lipoprotein 19 mg/dL (5-40)
[2021-03-24 14:08] LABS: Albumin 3.7 g/dL (2.9-4.4); Alpha-1-Globulins 0.3 g/dL (0.0-0.4); Alpha-2-Globulins 0.8 g/dL (0.4-1.0); Free Kappa Light Chains 38.8 mg/L (3.3-19.4); Gamma Globulin 1.4 g/dL (0.4-1.8); Immunoglobulin A 541 mg/dL (61-437); Immunoglobulin G 1155 mg/dL (603-1613); Immunoglobulin M 86 mg/dL (15-143); PROEL- TOTAL PROTEIN 7.4 g/dL (6.0-8.5)
== END ==
PROVIDERS: Nurse Practitioner Family; PCP Internal Medicine; Visit Provider Nurse Practitioner Family
DX: I10 Essential (primary) hypertension (principal); I67.9 Cerebrovascular disease, unspecified; G62.9 Polyneuropathy, unspecified; Z86.73 Personal history of transient ischemic attack (TIA), and cerebral infarction without residual deficits; Z85.46 Personal history of malignant neoplasm of prostate
CPT/HCPCS: 36415; 80053; 80061; 82784; 83883; 84165; 84443; 85027; 86334

== ENCOUNTER → 2021-12-18 | Outpatient (CLI) | payer MEDICARE, OTHER, SELFPAY ==
--- NOTE | 2021-12-18 09:25 | RAD_ITS ---
STUDY: X-RAY CHEST REASON FOR EXAM: Male, 71 years old. persistent cough TECHNIQUE: PA and lateral views of the chest. COMPARISON: 02/08/2019 FINDINGS: The lungs are clear and expanded. There is no demonstrated pleural abnormality. Normal size heart. Normal mediastinum and robin. Normal visualized pulmonary arteries. Normal visualized aortic arch and descending thoracic aorta. Age-appropriate thoracic spine. Normal visualized ribs, clavicles, and shoulders. Splenic granulomata. RAD/Chest PA and Lateral IMPRESSION: No acute cardiopulmonary disease. No significant interval change. Electronically Signed: Kay Thomas MD at 5:03 EDT Reading Location ID and State: , Service support ,
== END | disposition home or self-care (01) ==
PROVIDERS: PCP Internal Medicine; Referring Provider Internal Medicine; Visit Provider Internal Medicine
DX: R05.3 Chronic cough (principal)
CPT/HCPCS: 71046

== ENCOUNTER → 2022-04-09 | Outpatient (CLI) | payer MEDICARE, OTHER, SELFPAY ==
[2022-04-09 12:14] LABS: Absolute Lymphocyte Count 1.18 X10^3/uL (0.83-4.51); Basophil# 0.03 X10^3/uL; Basophil% 0.6 % (0-1); Eosinophil# 0.14 X10^3/uL; Hematocrit 46.2 % (40-54); Lymphocyte # 1.18 X10^3/ul (0.83-4.51); Lymphocyte % 24.9 % (19-41); Mean Corp Hgb Conc 32.5 g/dL (32-36); Mean Corpuscular Hgb 29.4 pg (27.0-32.0); Mean Corpuscular Volume 90.6 fL (80-94); Monocyte# 0.41 X10^3/uL; Monocyte% 8.6 % (0-10); NRBC Flagged by Analyzer 0 % (0-5); Neutrophil # 2.96 X10^3/uL (2.7-7.7); Neutrophil % 62.5 % (47-70); Platelet Count 312 K/mm3 (150-450); RBC Distribution Width SD 43.2 fl (35.1-43.9); White Blood Count 4.7 K/mm3 (4.4-11.0)
[2022-04-09 12:35] LABS: ALB/GLOB Ratio 0.9 RATIO (0.9-2.4); AST(SGOT) 22 U/L (15-37); Alanine Aminotransfer ALT/SGPT 24 U/L (16-61); Albumin, Serum 3.9 g/dL (3.2-5.0); Alkaline Phosphatase 83 U/L (45-117); Anion Gap 7 (5-15); BUN 23 mg/dL (7-18); BUN/Creat Ratio 17.3 RATIO (10-20); Calcium,Total 9.3 mg/dL (8.5-10.1); Chloride 108 mmol/L (98-107); Cholesterol 185 mg/dL (200); Creatinine, Serum 1.33 mg/dL (0.70-1.30); EST Glomerular Filtration Rate 56 mL/min (>60); Est Glom Filt Rate - Afr Amer 68 mL/min (>60); Globulin 4.3 g/dL (2.2-4.2); Glucose 110 mg/dL (74-106); High Density Lipoprotein 74 mg/dL; Potassium 4.2 mmol/L (3.5-5.1); Protein, Total 8.2 g/dL (6.4-8.2); Sodium Level 140 mmol/L (136-145); Thyroid Stim Hormone (TSH) 2.19 uIU/mL (0.358-3.74); Triglycerides 101 mg/dL; Very Low Density Lipoprotein 20 mg/dL (5-40)
== END | disposition home or self-care (01) ==
LOC: BIMLAB 09:39
PROVIDERS: PCP Internal Medicine; Referring Provider Nurse Practitioner Family; Visit Provider Nurse Practitioner Family
DX: I10 Essential (primary) hypertension (principal); I67.9 Cerebrovascular disease, unspecified; Z85.46 Personal history of malignant neoplasm of prostate; Z12.5 Encounter for screening for malignant neoplasm of prostate
CPT/HCPCS: 36415; 80053; 80061; 84153; 84443; 85025; G0103

== ENCOUNTER → 2023-04-09 | Outpatient (CLI) | payer MEDICARE, OTHER, SELFPAY ==
[2023-04-09 12:27] LABS: Absolute Lymphocyte Count 1.01 X10^3/uL (0.83-4.51); Absolute Neutrophil Count 2.8 X10^3/uL (2.0-7.7); Basophil# 0.04 X10^3/uL; Basophil% 0.9 % (0-1); Eosinophil# 0.12 X10^3/uL; Eosinophils% 2.7 % (0-5); Hematocrit 43.8 % (40-54); Lymphocyte # 1.01 X10^3/ul (0.83-4.51); Lymphocyte % 22.3 % (19-41); Mean Corpuscular Hgb 29.5 pg (27.0-32.0); Mean Corpuscular Volume 92.4 fL (80-94); Mean Platelet Vol. 9.9 fl (6.2-12.0); Monocyte% 11.1 % (0-10); NRBC Flagged by Analyzer 0 % (0-5); Neutrophil # 2.84 X10^3/uL (2.7-7.7); Neutrophil % 62.8 % (47-70); Platelet Count 314 K/mm3 (150-450); RBC Distribution Width CV 13.4 % (11.6-14.6); RBC Distribution Width SD 45.7 fl (35.1-43.9); Red Blood Count 4.74 M/mm3 (4.6-6.2); White Blood Count 4.5 K/mm3 (4.4-11.0)
[2023-04-09 13:08] LABS: ALB/GLOB Ratio 0.9 RATIO (0.9-2.4); AST(SGOT) 15 U/L (15-37); Alanine Aminotransfer ALT/SGPT 22 U/L (16-61); Albumin, Serum 3.5 g/dL (3.2-5.0); Alkaline Phosphatase 78 U/L (45-117); Anion Gap 7 (5-15); BUN 20 mg/dL (7-18); BUN/Creat Ratio 15.4 RATIO (10-20); Calcium,Total 8.9 mg/dL (8.5-10.1); Chloride 109 mmol/L (98-107); Cholesterol 142 mg/dL (200); EST Glomerular Filtration Rate 57 mL/min (>60); Est Glom Filt Rate - Afr Amer 69 mL/min (>60); Globulin 4.1 g/dL (2.2-4.2); Glucose 107 mg/dL (74-106); High Density Lipoprotein 76 mg/dL; PSA,Total- Diagnostic 0.89 ng/mL (0.0-4.0); Potassium 3.8 mmol/L (3.5-5.1); Protein, Total 7.6 g/dL (6.4-8.2); Sodium Level 140 mmol/L (136-145); Triglycerides 63 mg/dL; Very Low Density Lipoprotein 13 mg/dL (5-40)
== END | disposition home or self-care (01) ==
PROVIDERS: PCP Internal Medicine; Referring Provider Internal Medicine; Visit Provider Internal Medicine
DX: I10 Essential (primary) hypertension (principal); Z85.46 Personal history of malignant neoplasm of prostate
CPT/HCPCS: 36415; 80053; 80061; 84153; 85025

== ENCOUNTER → 2024-11-08 | Outpatient (CLI) | payer MEDICARE, OTHER, SELFPAY ==
[2024-11-08 12:30] LABS: Absolute Lymphocyte Count 1.15 X10^3/uL (0.83-4.51); Absolute Neutrophil Count 3.1 X10^3/uL (2.0-7.7); Basophil# 0.06 X10^3/uL; Basophil% 1.2 % (0-1); Eosinophils% 2.1 % (0-5); Hematocrit 45.7 % (40-54); Hemoglobin 15.6 g/dL (13.0-16.5); Lymphocyte # 1.15 X10^3/ul (0.83-4.51); Lymphocyte % 23.7 % (19-41); Mean Corp Hgb Conc 34.1 g/dL (32-36); Mean Corpuscular Hgb 30.8 pg (27.0-32.0); Mean Corpuscular Volume 90.3 fL (80-94); Monocyte# 0.44 X10^3/uL; Monocyte% 9.1 % (0-10); NRBC Flagged by Analyzer 0 % (0-5); Neutrophil # 3.09 X10^3/uL (2.7-7.7); Neutrophil % 63.5 % (47-70); Platelet Count 292 K/mm3 (150-450); RBC Distribution Width CV 13.3 % (11.6-14.6); RBC Distribution Width SD 44.4 fl (35.1-43.9); Red Blood Count 5.06 M/mm3 (4.6-6.2); White Blood Count 4.9 K/mm3 (4.4-11.0)
[2024-11-08 13:47] LABS: ALB/GLOB Ratio 1.2 RATIO (0.9-2.4); AST(SGOT) 20 U/L (<=37); Alanine Aminotransfer ALT/SGPT 12 U/L (<=46); Albumin, Serum 4.3 g/dL (3.4-4.8); Alkaline Phosphatase 80 U/L (40-129); Anion Gap 12 (5-15); BUN 20 mg/dL (4-19); BUN/Creat Ratio 15.5 RATIO (10-20); Calcium,Total 9.5 mg/dL (7.6-11.0); Carbon Dioxide 21.4 mmol/L (21.0-32.0); Chloride 106 mmol/L (98-108); Cholesterol 173 mg/dL (<=200); Creatinine, Serum 1.26 mg/dL (0.70-1.20); EST Glomerular Filtration Rate 59 (>60); Globulin 3.6 g/dL (2.2-4.2); Glucose 106 mg/dL (70-99); High Density Lipoprotein 69 mg/dL; Low Density Lipoprotein Calc. 89 mg/dL; PSA,Total - Annual Screen 1.71 ng/mL (0.02-4.00); Potassium 4.2 mmol/L (3.3-5.1); Protein, Total 7.9 g/dL (5.9-8.4); Sodium Level 139 mmol/L (133-145); Total Bilirubin 0.76 mg/dL (0.00-1.30); Triglycerides 77 mg/dL; Very Low Density Lipoprotein 15 mg/dL (5-40); Vitamin B12 492 pg/mL (180-914); cholesterol:hdl ratio screen 2.52
== END | disposition home or self-care (01) ==
LOC: BIMLAB 09:28
PROVIDERS: PCP Internal Medicine; Referring Provider Internal Medicine; Visit Provider Internal Medicine
DX: I10 Essential (primary) hypertension (principal); G60.8 Other hereditary and idiopathic neuropathies; Z85.46 Personal history of malignant neoplasm of prostate; Z12.5 Encounter for screening for malignant neoplasm of prostate
CPT/HCPCS: 36415; 80053; 80061; 82607; 84153; 85025; G0103